=== PATIENT | female | born 1955 | race Hispanic/Latino ===

== ENCOUNTER 2017-07-10 15:42 | Emergency (ER) | payer OTHER ==
[2017-07-10 16:22] VITALS: BP 125/85; PULSE 90; RESP 17; TEMP 98; O2SAT 95
--- NOTE | 2017-07-10 17:58 | ED PDOC ---
Arrival/HPI - General Chief Complaint: Abdominal Pain Time Seen by Provider: 07/10/17 17:55 Historian: Patient - History of Present Illness Narrative History of Present Illness (Text): 07/10/17 17:58 This 62 yo female presents to this ED c/o right flank pain x 1 year. Patient admits she has had multiple ultrasounds, and Ct scan in the past which were normal. Patient denies sob, cp, n/v, rectal bleeding, melena, recent travel, sick contact, or abnormal gait. Time/Duration: Other (1 year ) Quality: Aching Context: Home Past Medical History - Provider Review Nursing Documentation Reviewed: Yes - Infectious Disease Hx of Infectious Diseases: None - Tetanus Immunization Tetanus Immunization: Unknown - Past Medical History Past Medical History: No Previous - Cardiac Hx Pacemaker: No - Neurological Hx Paralysis: No - Hematological/Oncological Hx Blood Transfusions: No Hx Blood Transfusion Reaction: No - Musculoskeletal/Rheumatological Hx Musculoskeletal Disorders: Yes (OSTEOPENIA) - Gastrointestinal Hx Gastroesophageal Reflux: Yes - Psychiatric Hx Emotional Abuse: No Hx Physical Abuse: No Hx Substance Use: No - Surgical History Hx Section: Yes - Anesthesia Hx Anesthesia: Yes Hx Anesthesia Reactions: Yes (SLOW TO WAKE UP) Hx Malignant Hyperthermia: No - Suicidal Assessment Feels Threatened In Home Enviroment: No Family/Social History - Physician Review Nursing Documentation Reviewed: Yes Family/Social History: Other (non-contributory) Smoking Status: Never Smoked Hx Alcohol Use: No Hx Substance Use: No Hx Substance Use Treatment: No Allergies/Home Meds Allergies/Adverse Reactions: Allergies No Known Allergies Allergy (Verified 07/10/17 16:19) Home Medications: Home Meds Medication Instructions Recorded Confirmed No Known Home Med 07/10/17 07/10/17 Review of Systems - Review of Systems Constitutional: Normal. absent: Fatigue, Weight Change, Fevers Eyes: Normal ENT: Normal Respiratory: Normal. absent: SOB, Sputum Cardiovascular: Normal Gastrointestinal: Abdominal Pain. absent: Constipation, Diarrhea, Nausea, Vomiting Genitourinary Female: Normal. absent: Dysuria, Frequency, Hematuria Musculoskeletal: Normal Skin: Normal Neurological: Normal Endocrine: Normal Hemo/Lymphatic: Normal Psychiatric: Normal Physical Exam Vital Signs Temp Pulse Resp BP Pulse Ox 07/10/17 16:21 98.0 F 90 17 125/85 95 Temperature: Afebrile Blood Pressure: Normal Pulse: Regular Respiratory Rate: Normal Appearance: Positive for: Well-Appearing, Non-Toxic, Comfortable Pain Distress: None Mental Status: Positive for: Alert and Oriented X 3 - Systems Exam Head: Present: Atraumatic, Normocephalic Pupils: Present: PERRL Extroacular Muscles: Present: EOMI Conjunctiva: Present: Normal Mouth: Present: Moist Mucous Membranes Neck: Present: Normal Range of Motion Respiratory/Chest: Present: Clear to Auscultation, Good Air Exchange. No: Respiratory Distress, Accessory Muscle Use Cardiovascular: Present: Regular Rate and Rhythm, Normal S1, S2. No: Murmurs Abdomen: Present: Normal Bowel Sounds. No: Tenderness, Distention, Peritoneal Signs, Rebound, Guarding Back: Present: Normal Inspection. No: CVA Tenderness Upper Extremity: Present: Normal Inspection, Normal ROM, NORMAL PULSES, Neurovascularly Intact, Capillary Refill < 2s. No: Cyanosis, Edema Lower Extremity: Present: Normal Inspection. No: Edema Neurological: Present: GCS=15, CN II-XII Intact, Speech Normal, Motor Func Grossly Intact, Normal Sensory Function, Normal Cerebellar Funct, Gait Normal Skin: Present: Warm, Dry, Normal Color. No: Rashes Psychiatric: Present: Alert, Oriented x 3, Normal Insight, Normal Concentration Medical Decision Making ED Course and Treatment: 07/10/17 19:49 Dr. Aranda came to the ED to evaluate and examine patient personally. He reviewed CT scan films, and he stated patient can be discharged home. Ct scan was unremarkable. 07/10/17 19:59 Re-evaluation. Patient feels better. Discussed results and plan with patient who expresses understanding. All questions answered and there is agreement with the plan to discharge home with instructions. Patient stable for discharge. Return if symptoms persist or worsen. Patient stated she will see Dr. Kiran on . Dr. Kiran is aware of it. Dr. Kiran agrees with disposition to d/c patient home. Re-evaluation Time: 19:59 Reassessment Condition: Re-examined, Unchanged - Lab Interpretations Lab Results: 07/10/17 18:42 07/10/17 18:42 Lab Results 07/10/17 19:21: Urine Color Yellow, Urine Appearance Clear, Urine pH 6.0, Ur Specific [place] 1.015, Urine Protein Negative, Urine Glucose (UA) Negative, Urine Ketones Negative, Urine Blood Negative, Urine Nitrate Negative, Urine Bilirubin Negative, Urine Urobilinogen 0.2, Ur Leukocyte Esterase Trace H, Urine RBC 0 - 2, Urine WBC 1 - 3, Ur Epithelial Cells 3 - 4 07/10/17 18:42: Sodium 139, Potassium 4.2, Chloride 103, Carbon Dioxide 24, Anion Gap 16, BUN 14, Creatinine 0.6, Est GFR ( Amer) > 60, Est GFR (Non- Af Amer) > 60, Random Glucose 88, Calcium 9.6, Total Bilirubin 0.6, AST 42 H, ALT 51, Alkaline Phosphatase 69, Total Protein 7.2, Albumin 4.6, Globulin 2.6, Albumin/Globulin Ratio 1.8, Lipase 162 07/10/17 18:42: WBC 7.5 D, RBC 4.51, Hgb 13.6, Hct 40.1, MCV 88.9, MCH 30.2, MCHC 33.9, RDW 12.8, Plt Count 251, MPV 9.0, Gran % 60.4, Lymph % (Auto) 30.4, [place] % (Auto) 6.8 H, Eos % (Auto) 2.1, Baso % (Auto) 0.3, Gran # 4.52, Lymph # 2.3, [place] # 0.5, Eos # 0.2, Baso # 0.02 I have reviewed the lab results: Yes Interpretation: No clinic. lab abnormalty - RAD Interpretation Narrative RAD Interpretations (Text): 07/11/17 00:02 [facility] Division of Radiology [address] [address] Tel. no. Patient Name: MIRTA CALLEJAS Pt. Address: [address] [place] [address] Rec #: [id number] [place] [id number]: Feng MCQUEEN,Sandra Nolan Pt Order Location: ED : 1955 Female Age: 62 Order #: [id number] Reason for exam: right flank pain CT Scan ABD PELVIS W/O PO OR IV CONT Exam Date: 07/10/17 This imaging exam was performed at [facility] EXAM: CT Abdomen and Pelvis Without Intravenous Contrast EXAM DATE/TIME: 07/10/2017 6:14 PM CLINICAL HISTORY: The patient age is 62 years old and is female; Pain; Abdominal pain; Flank; Right; Additional info: Right flank pain Facility exam id and description: Ct abdpelscon abd pelvis w/o po or iv cont TECHNIQUE: Axial computed tomography images of the abdomen and pelvis without intravenous contrast. All CT scans at this facility use one or more dose reduction techniques, viz.: automated exposure control; ma/kV adjustment per patient size (including targeted exams where dose is matched to indication; i.e. head); or iterative reconstruction technique. Coronal and sagittal reformatted images were created and reviewed. COMPARISON: CT - ABD PELVIS W/O PO OR IV CONT 09/21/2015 10:56:47 PM FINDINGS: Lower thorax: There is a small hiatal hernia. ABDOMEN: Liver: There is hypodense fatty infiltration of the liver. Gallbladder and bile ducts: No calcified stones. No ductal dilation. Pancreas: Normal contour. No ductal dilation. Spleen: The spleen measures 12.1 cm in length, borderline for splenomegaly. Adrenals: No mass. Kidneys and ureters: There is no hydronephrosis bilaterally. No obstructive calculi are identified within the ureters bilaterally. Stomach and bowel: No obstruction. No mucosal thickening. Moderate fecal material is identified within the right hemicolon. Appendix: No findings to suggest acute appendicitis. PELVIS: Bladder: No stones. Reproductive: Calcifications are visualized within the left posterior uterine wall, suggestive of fibroids. This is stable. ABDOMEN and PELVIS: Intraperitoneal space: No free air. Bones/joints: Hypertrophic degenerative changes are noted within the spine. Soft tissues: There is minimal herniation of fat into the umbilicus. Vasculature: Calcified phleboliths are identified within the pelvis. No abdominal aortic aneurysm. Lymph nodes: No enlarged lymph nodes. IMPRESSION: 1. There is hypodense fatty infiltration of the liver again visualized. 2. Borderline splenomegaly. 3. There is no hydronephrosis bilaterally. No obstructive calculi are identified within the ureters bilaterally. 4. Calcifications are visualized within the left posterior uterine wall, suggestive of fibroids. This is stable. 5. Moderate fecal material is identified within the right hemicolon. 6. Incidental/non-acute findings are described above. Dictated By: Sid Stanton MD, MD Dictated Date/Time: 09/052118 Signed By: Sid Barrera MD Date Signed: [id number] Transcribed By: EFREM Transcribe Date/Time : 07/10/172118 TARIQ/AMARI Radiology Orders: 07/10/17 18:14 ABD & PELVIS W/O PO OR IV CONT [CT] Stat - Medication Orders Current Medication Orders: Discontinued Medications Sodium Chloride (Sodium Chloride 0.9%) 500 mls @ 999 mls/hr IV .Q31M STA Stop: 07/10/17 18:42 Last Admin: 07/10/17 19:27 Dose: Not Given Non-Admin Reason: Patient Refused Disposition/Present on Arrival - Present on Arrival Any Indicators Present on Arrival: No History of DVT/PE: No History of Uncontrolled Diabetes: No Urinary Catheter: No History of Decub. Ulcer: No History Surgical Site Infection Following: None - Disposition Have Diagnosis and Disposition been Completed?: Yes Diagnosis: Chronic abdominal pain Disposition: HOME/ ROUTINE Disposition Time: 20:00 Patient Plan: Discharge Condition: GOOD Discharge Instructions (ExitCare): Abdominal Pain (ED) Additional Instructions: Call private doctor for follow up visit in 1-[address] Kiran for further medical care. return to emergency if symptoms worsen Referrals: Maritza Kiran MD [Primary Care Provider] - Follow up with primary Forms: [facility] ([place])
[2017-07-10] MEDS ORDERED: Sodium Chloride 0.9% 500 ML IV STA (18:12)
[2017-07-10 18:51] LABS: BASO # 0.02 K/mm3 (0.0-2.0); BASO % 0.3 % (0.0-3.0); EOS # 0.2 (0.0-0.7); EOS % 2.1 % (1.5-5.0); GRAN # 4.52 (1.4-6.5); GRAN % 60.4 % (50.0-68.0); HEMATOCRIT 40.1 % (36.0-48.0); LYMPH # 2.3 (1.2-3.4); LYMPH % 30.4 % (22.0-35.0); MEAN CELL VOLUME 88.9 fl (80.0-105.0); MEAN CORPUSCULAR HEMOGLOBIN 30.2 pg (25.0-35.0); MEAN CORPUSCULAR HGB CONC 33.9 g/dl (31.0-37.0); MONO # 0.5 (0.1-0.6); MONO % 6.8 % (1.0-6.0); RED CELL DISTRIBUTION WIDTH 12.8 % (11.5-14.5); WHITE BLOOD COUNT 7.5 10^3/ul (4.5-11.0)
[2017-07-10 19:02] LABS: ALB/GLOB RATIO 1.8 (1.1-1.8); ALKALINE PHOSPHATASE 69 U/L (38-126); ALT/SGPT 51 U/L (7-56); AST/SGOT 42 U/L (14-36); BILIRUBIN,TOTAL 0.6 mg/dL (0.2-1.3); BLOOD UREA NITROGEN 14 mg/dL (7-21); CALCIUM 9.6 mg/dL (8.4-10.5); CARBON DIOXIDE 24 mmol/L (21-33); CHLORIDE 103 mmol/L (98-107); GFR AFRICAN-AMERICAN > 60; GLUCOSE,RANDOM 88 mg/dL (70-110); LIPASE 162 U/L (23-300); POTASSIUM 4.2 mmol/L (3.6-5.0); SODIUM 139 mmol/L (132-148); TOTAL PROTEIN 7.2 g/dL (5.8-8.3)
[2017-07-10 19:39] LABS: URINE BILIRUBIN NEGATIVE (NEGATIVE); URINE BLOOD NEGATIVE (NEGATIVE); URINE GLUCOSE (UA) NEGATIVE (NEGATIVE); URINE KETONE NEGATIVE (NEGATIVE); URINE LEUKOCYTE ESTERASE TRACE Leu/uL (NEGATIVE); URINE PROTEIN NEGATIVE mg/dL (<30 mg/dL); URINE UROBILINOGEN 0.2 E.U./dL (<1 E.U./dL)
[2017-07-10 19:44] LABS: URINE APPEARANCE CLEAR (CLEAR); URINE COLOR YELLOW (YELLOW)
[2017-07-10 19:53] LABS: URINE RBC 0 - 2 /hpf (0-2)
--- NOTE | 2017-07-10 21:20 | CT ---
EXAM: CT Abdomen and Pelvis Without Intravenous Contrast EXAM DATE/TIME: 07/10/2017 6:14 PM CLINICAL HISTORY: The patient age is 62 years old and is female; Pain; Abdominal pain; Flank; Right; Additional info: Right flank pain Facility exam id and description: Ct abdpelscon abd pelvis w/o po or iv cont TECHNIQUE: Axial computed tomography images of the abdomen and pelvis without intravenous contrast. All CT scans at this facility use one or more dose reduction techniques, viz.: automated exposure control; ma/kV adjustment per patient size (including targeted exams where dose is matched to indication; i.e. head); or iterative reconstruction technique. Coronal and sagittal reformatted images were created and reviewed. COMPARISON: CT - ABD PELVIS W/O PO OR IV CONT 09/21/2015 10:56:47 PM FINDINGS: Lower thorax: There is a small hiatal hernia. ABDOMEN: Liver: There is hypodense fatty infiltration of the liver. Gallbladder and bile ducts: No calcified stones. No ductal dilation. Pancreas: Normal contour. No ductal dilation. Spleen: The spleen measures 12.1 cm in length, borderline for splenomegaly. Adrenals: No mass. Kidneys and ureters: There is no hydronephrosis bilaterally. No obstructive calculi are identified within the ureters bilaterally. Stomach and bowel: No obstruction. No mucosal thickening. Moderate fecal material is identified within the right hemicolon. Appendix: No findings to suggest acute appendicitis. PELVIS: Bladder: No stones. Reproductive: Calcifications are visualized within the left posterior uterine wall, suggestive of fibroids. This is stable. ABDOMEN and PELVIS: Intraperitoneal space: No free air. Bones/joints: Hypertrophic degenerative changes are noted within the spine. Soft tissues: There is minimal herniation of fat into the umbilicus. Vasculature: Calcified phleboliths are identified within the pelvis. No abdominal aortic aneurysm. Lymph nodes: No enlarged lymph nodes. IMPRESSION: 1. There is hypodense fatty infiltration of the liver again visualized. 2. Borderline splenomegaly. 3. There is no hydronephrosis bilaterally. No obstructive calculi are identified within the ureters bilaterally. 4. Calcifications are visualized within the left posterior uterine wall, suggestive of fibroids. This is stable. 5. Moderate fecal material is identified within the right hemicolon. 6. Incidental/non-acute findings are described above.
== END 2017-07-10 20:15 | disposition home or self-care (01) ==
LOC: ED 15:42
DX: G89.29 Other chronic pain (principal); R10.9 Unspecified abdominal pain